=== PATIENT | male | born 1955 ===

== ENCOUNTER 2017-07-07 11:03 | Observation (INO) | payer MEDICARE ==
[2017-07-07] MEDS ORDERED: Iohexol 240 (50 ml) PO ONE (12:05)
--- NOTE | 2017-07-07 12:13 | ED PDOC ---
HPI: Abdomen Time Seen by Provider: 07/07/17 11:32 Chief Complaint (Nursing): Abdominal Pain Chief Complaint (Provider): Inguinal Pain History Per: Patient History/Exam Limitations: no limitations Onset/Duration Of Symptoms: Days (x 2) Current Symptoms Are (Timing): Still Present Location Of Pain/Discomfort: Diffuse Quality Of Discomfort: "Pain" Additional Complaint(s): 62 year old male with a history of HTN and cardiac stents presents to the ED complaining of left sided inguinal pain that radiates down his left leg. Patient also complains of minor hip pain and mild diffuse abdominal pain. He is unable to bear weight on his leg secondary to pain. Patient is compliant with hypertension medications. Denies injury, trauma, urinary symptoms, fever, and back pain. PMD: Dr. Benny Sorensen Past Medical History Reviewed: Historical Data, Nursing Documentation, Vital Signs Vital Signs: Last Vital Signs Temp 98.2 F 07/08/17 07:49 Pulse 64 07/08/17 07:49 Resp 20 07/08/17 07:49 BP 119/79 07/08/17 07:49 Pulse Ox 96 07/08/17 07:49 - Medical History PMH: Anxiety, Asthma, Depression, Emphysema, Gastritis, HTN, Osteoporosis, Rheumatoid Arthritis Denies: Chronic Kidney Disease - Surgical History Surgical History: Coronary Stent, Endoscopy (x 24 years ago) - Family History Family History: States: Unknown Family Hx - Immunization History Hx Tetanus Toxoid Vaccination: No Hx Influenza Vaccination: No Hx Pneumococcal Vaccination: No - Home Medications Home Medications: Ambulatory Orders Medication Instructions Recorded Alendronate [Fosamax] 70 mg PO MO 07/07/17 Ergocalciferol (Vitamin D2) 50,000 unit PO MO 07/07/17 [Vitamin D2] Ranitidine HCl [Zantac] 150 mg PO BID 07/07/17 Simvastatin [Zocor] 40 mg PO HS 07/07/17 Valsartan [Diovan] 80 mg PO DAILY 07/07/17 Ibuprofen [Motrin Tab] 600 mg PO Q8 PRN tab 07/08/17 - Allergies Allergies/Adverse Reactions: Allergies Allergy/AdvReac Type Severity Reaction Status Date / Time No Known Allergies Allergy Verified 07/07/17 11:33 Review of Systems ROS Statement: Except As Marked, All Systems Reviewed And Found Negative Gastrointestinal: Positive for: Abdominal Pain (diffuse; also c/o inguinal pain on left side) Musculoskeletal: Positive for: Leg Pain (radiating from inguinal area). Negative for: Back Pain Physical Exam - Reviewed Nursing Documentation Reviewed: Yes Vital Signs Reviewed: Yes - Physical Exam Appears: Positive for: Non-toxic, No Acute Distress Head Exam: Positive for: ATRAUMATIC, NORMAL INSPECTION, NORMOCEPHALIC Skin: Positive for: Normal Color, Warm, Dry Eye Exam: Positive for: EOMI, Normal appearance, PERRL Neck: Positive for: Normal, Painless ROM Cardiovascular/Chest: Positive for: Regular Rate, Rhythm Respiratory: Positive for: Normal Breath Sounds. Negative for: Respiratory Distress Gastrointestinal/Abdominal: Positive for: Tenderness (diffuse abdominal tenderness accompanied by left sided inguinal tenderness). Negative for: Mass, Other (abcess, fluctuance, erythema in inguinal area) Back: Positive for: Normal Inspection. Negative for: L CVA Tenderness, R CVA Tenderness Neurologic/Psych: Positive for: Alert, Oriented. Negative for: Motor/Sensory Deficits - Laboratory Results Result Diagrams: 07/07/17 12:30 07/07/17 12:30 - ECG O2 Sat by Pulse Oximetry: 98 (RA) Pulse Ox Interpretation: Normal Medical Decision Making Medical Decision Making: Time; 12:05 Initial Plan: --Abd pelvis CT --CMP --CBC --Morphine 2 mg IV --Omnipaque 50 ml PO --urine cx --urinalysis --labs and urine showed no clinically significant results. Time: 15:00 --Patient signed over to Dr. Glass, pending CT and reevaluation. Scribe Attestation: Documented by Erlinda Worthy, acting as a scribe for Va Mejía MD Provider Scribe Attestation: All medical record entries made by the Scribe were at my direction and personally dictated by me. I have reviewed the chart and agree that the record accurately reflects my personal performance of the history, physical exam, medical decision making, and the department course for this patient. I have also personally directed, reviewed, and agree with the discharge instructions and disposition. Disposition - Clinical Impression Clinical Impression: Groin pain - Patient ED Disposition Is Patient to be Admitted: Transfer of Care - Disposition Disposition: Transfer of Care Disposition Time: 15:00 Condition: FAIR Patient Signed Over To: Presley Glass Handoff Comments: pending CT and reevaluation.
[2017-07-07 12:27] LABS: SQUAMOUS EPITHIAL 1 /hpf (0-5); URINE BILIRUBIN NEGATIVE (NEGATIVE); URINE BLOOD NEGATIVE (NEGATIVE); URINE CLARITY SLIGHTY-CLOUDY (Clear); URINE COLOR YELLOW (YELLOW); URINE GLUCOSE (UA) NEG (Normal); URINE LEUKOCYTE ESTERASE NEG Leu/uL (Negative); URINE PROTEIN 30 mg/dL (NEGATIVE); URINE UROBILINOGEN 0.2-1.0 mg/dL (0.2-1.0)
[2017-07-07 12:43] LABS: BASO % 0.4 % (0.0-2.0); EOS % 0.4 % (0.0-4.0); HEMOGLOBIN 14.4 g/dL (12.0-18.0); LYMPH # 1.4 K/uL (1.0-4.3); LYMPH % 17.2 % (20.0-40.0); MEAN CELL VOLUME 86.3 fl (80.0-94.0); MEAN CORPUSCULAR HEMOGLOBIN 28.3 pg (27.0-31.0); MEAN CORPUSCULAR HGB CONC 32.8 g/dL (33.0-37.0); MONO # 0.8 K/uL (0.0-0.8); MONO % 9.9 % (0.0-10.0); NEUT # 5.8 K/uL (1.8-7.0); NEUT % 72.1 % (50.0-75.0); RBC 5.07 Mil/uL (4.40-5.90); RED CELL DISTRIBUTION WIDTH 13.6 % (11.5-14.5)
[2017-07-07 13:02] LABS: ALB/GLOB RATIO 1.3 (1.0-2.1); ALBUMIN 4.5 g/dL (3.5-5.0); ALT/SGPT 34 U/L (21-72); AST/SGOT 21 U/L (17-59); BLOOD UREA NITROGEN 14 mg/dl (9-20); CALCIUM 9.7 mg/dL (8.4-10.2); GFR AFRICAN-AMERICAN > 60; GFR NON-AFRICAN AMERICAN > 60
[2017-07-07] MEDS ORDERED: Iohexol 300 100 ML IJ ONE (14:18)
[2017-07-07] MEDS ORDERED: Morphine 4 MG/ML VIAL ONE (15:10)
--- NOTE | 2017-07-07 15:24 | ED PDOC ---
- Laboratory Results Result Diagrams: 07/07/17 12:30 07/07/17 12:30 Interpretation Of Abn Labs: no acute - ECG O2 Sat by Pulse Oximetry: 98 (RA) - CT Scan/US ct Other Rad Studies (CT/US): Read By Radiologist Other Rad Interpretation: pulm nodules - Progress ED Course And Treament: 1515: Took over care from Dr. Mejía. Fu on ct. Pt. here with abd and left groin pain. Stable. 1609: Still in pain in left groin. Hard to put weight on leg and walk. Physical exam with no testicular tenderness, no groin mass. Will need admit for further eval and tx. 1633: Stable. Spoke with Dr. Levy. will admit med surg obs and give further orders when pt. reaches floor. Medical Decision Making Medical Decision Making: Time: 15:00 --Patient endorsed to me by Dr. Mejía, pending CT and reevaluation. Time: 15:27 CT Abd/Pelvis: FINDINGS: LOWER THORAX: 3 mm noncalcified nodule is seen at the right lower lobe in image 1 series 5 with a subpleural 3.5 mm nodule identified at the right lower lobe laterally in image 6. An additional 3.5 mm noncalcified nodule seen in image 8 at the right lower lobe with the lung bases also remarkable for a small hiatal hernia. No left-sided pulmonary nodule. No infiltrate bilaterally. Trace pericardial thickening or fluid noted. LIVER: Unremarkable. No gross lesion or ductal dilatation. GALLBLADDER AND BILE DUCTS: Unremarkable. PANCREAS: Unremarkable. No gross lesion or ductal dilatation. SPLEEN: Unremarkable. ADRENALS: Unremarkable. No mass. KIDNEYS AND URETERS: Unremarkable. No hydronephrosis. No solid mass. VASCULATURE: Unremarkable. No aortic aneurysm. BOWEL: Unremarkable. No obstruction. No gross mural thickening. APPENDIX: Normal appendix. PERITONEUM: Unremarkable. No free fluid. No free air. LYMPH NODES: Unremarkable. No enlarged lymph nodes. BLADDER: Unremarkable. REPRODUCTIVE: Unremarkable. BONES: Dextroscoliotic lumbar spinal deformity. OTHER FINDINGS: There is a small developing left inguinal hernia containing only fat at this time. IMPRESSION: 1. There is a minimal left inguinal hernia containing only a limited amount of fat. No bowel is involved. No reactive changes seen associated at this time. 2. No bowel or urinary tract obstruction, mesenteric edema, ascites or free intraperitoneal gas grossly evident. No definite renal pathology appreciated bilaterally. 3. Three small pulmonary nodules identified at the right lower lobe for which follow-up elective chest CT without contrast is recommended for further evaluation of the non visualized lung [place]. Disposition Counseled Patient/Family Regarding: Studies Performed, Diagnosis - Clinical Impression Clinical Impression: Groin pain - POA Present On Arrival: None - Disposition Disposition: Hospitalized as Observation Patient Disposition Time: 16:02 Condition: FAIR
--- NOTE | 2017-07-07 15:29 | CT ---
PROCEDURE: CT Abdomen and Pelvis with contrast HISTORY: l groin pain COMPARISON: None. TECHNIQUE: Following oral and intravenous contrast administration, a CT examination of the abdomen and pelvis performed from the domes of the diaphragms to the symphysis pubis with reformatted datasets provided not only axial but also sagittal and coronal series. Contrast dose: Omnipaque 300, 100 cc Radiation dose: Total exam DLP = 258.12 mGy-cm. This CT exam was performed using one or more of the following dose reduction techniques: Automated exposure control, adjustment of the mA and/or kV according to patient size, and/or use of iterative reconstruction technique. FINDINGS: LOWER THORAX: 3 mm noncalcified nodule is seen at the right lower lobe in image 1 series 5 with a subpleural 3.5 mm nodule identified at the right lower lobe laterally in image 6. An additional 3.5 mm noncalcified nodule seen in image 8 at the right lower lobe with the lung bases also remarkable for a small hiatal hernia. No left-sided pulmonary nodule. No infiltrate bilaterally. Trace pericardial thickening or fluid noted. LIVER: Unremarkable. No gross lesion or ductal dilatation. GALLBLADDER AND BILE DUCTS: Unremarkable. PANCREAS: Unremarkable. No gross lesion or ductal dilatation. SPLEEN: Unremarkable. ADRENALS: Unremarkable. No mass. KIDNEYS AND URETERS: Unremarkable. No hydronephrosis. No solid mass. VASCULATURE: Unremarkable. No aortic aneurysm. BOWEL: Unremarkable. No obstruction. No gross mural thickening. APPENDIX: Normal appendix. PERITONEUM: Unremarkable. No free fluid. No free air. LYMPH NODES: Unremarkable. No enlarged lymph nodes. BLADDER: Unremarkable. REPRODUCTIVE: Unremarkable. BONES: Dextroscoliotic lumbar spinal deformity. OTHER FINDINGS: There is a small developing left inguinal hernia containing only fat at this time. IMPRESSION: 1. There is a minimal left inguinal hernia containing only a limited amount of fat. No bowel is involved. No reactive changes seen associated at this time. 2. No bowel or urinary tract obstruction, mesenteric edema, ascites or free intraperitoneal gas grossly evident. No definite renal pathology appreciated bilaterally. 3. Three small pulmonary nodules identified at the right lower lobe for which follow-up elective chest CT without contrast is recommended for further evaluation of the non visualized lung burleson.
[2017-07-07 17:11] VITALS: RESP 20
[2017-07-08 07:50] VITALS: BP 119/79; PULSE 64; TEMP 98.2
--- NOTE | 2017-07-08 14:27 | CP.PCM.HP ---
History of Present Illness - History of Present Illness History of Present Illness: CC: groin pain HPI: 62 y/o man with PMH of a cardiac stents and HTN presented to the ED complaining of left groin pain. Patient reports pain for 2 days, radiating down left leg, associated abdominal pain, denies injury or fall. Patient reported difficulty w/ weight bearing which has resolved. Patient denies headaches, chest pain, SOB, nausea, vomiting, diarrhea, dysuria, back pain, fever, or chills. PMD: Dr. Minh Sorensen PMH: cardiac stents and HTN meds: see med list allergies: NKDA PSH: umbilical hernia repair Fam: Father - [place] at 60, Sister - spinal CA SOC: quit smoking 20 years ago, before which he smoked 3ppd for 6 years, social EtOH use, denies illicit drug use, worked at a [employer], lives alone ROS: 12 points assessed and negative unless otherwise reported in HPI patient seen and examined this morning at bedside w/ Dr. Levy Present on Admission - Present on Admission Any Indicators Present on Admission: No History of DVT/PE: No History of Uncontrolled Diabetes: No Urinary Catheter: No Decubitus Ulcer Present: No Review of Systems - Review of Systems All systems: reviewed and no additional remarkable complaints except - Constitutional Constitutional: absent: Chills, Fever, Headache - EENT Eyes: absent: Change in Vision - Cardiovascular Cardiovascular: absent: Chest Pain - Respiratory Respiratory: absent: Cough, Dyspnea - Gastrointestinal Gastrointestinal: As Per HPI, Abdominal Pain. absent: Diarrhea, Hematochezia, Melena, Nausea, Vomiting - Genitourinary Genitourinary: absent: Dysuria - Musculoskeletal Musculoskeletal: absent: Back Pain - Integumentary Integumentary: absent: Rash - Neurological Neurological: absent: Dizziness, Headaches Past Patient History - Infectious Disease Hx of Infectious Diseases: None - Past Medical History & Family History Past Medical History?: Yes - Past Social History Smoking Status: Former Smoker - CARDIAC Hx Hypertension: Yes - PULMONARY Hx Asthma: Yes Hx Emphysema: Yes - NEUROLOGICAL Hx Neurological Disorder: Yes - HEENT Hx HEENT Problems: No - RENAL Hx Chronic Kidney Disease: No - ENDOCRINE/METABOLIC Hx Endocrine Disorders: No - HEMATOLOGICAL/ONCOLOGICAL Hx Blood Disorders: No - INTEGUMENTARY Hx Dermatological Problems: No - MUSCULOSKELETAL/RHEUMATOLOGICAL Hx Falls: No Hx Osteoporosis: Yes Hx Rheumatoid Arthritis: Yes - GASTROINTESTINAL Hx Gastritis: Yes - GENITOURINARY/GYNECOLOGICAL Hx Genitourinary Disorders: No - PSYCHIATRIC Hx Anxiety: Yes Hx Depression: Yes Hx Substance Use: No - SURGICAL HISTORY Hx Coronary Stent: Yes - ANESTHESIA Hx Anesthesia: Yes Hx Anesthesia Reactions: No Hx Malignant Hyperthermia: No Meds Home Medications: Home Medication List Medication Instructions Recorded Confirmed Type Ibuprofen [Motrin Tab] 600 mg PO Q8 PRN tab 07/08/17 Rx Allergies/Adverse Reactions: Allergies Allergy/AdvReac Type Severity Reaction Status Date / Time No Known Allergies Allergy Verified 07/07/17 11:33 Physical Exam - Constitutional Appears: Non-toxic, No Acute Distress - Head Exam Head Exam: ATRAUMATIC, NORMAL INSPECTION, NORMOCEPHALIC - Eye Exam Eye Exam: Normal appearance - ENT Exam ENT Exam: Mucous Membranes Moist - Neck Exam Neck exam: Positive for: Full Rom. Negative for: Tenderness - Respiratory Exam Respiratory Exam: Clear to Auscultation Bilateral. absent: Accessory Muscle Use , Decreased Breath Sounds, Rales, Rhonchi, Wheezes, Respiratory Distress - Cardiovascular Exam Cardiovascular Exam: REGULAR RHYTHM, RRR. absent: Bradycardia, Tachycardia, Diastolic murmur, Rubs, Systolic Murmur - GI/Abdominal Exam GI & Abdominal Exam: Normal Bowel Sounds, Soft. absent: Distended, Tenderness - Exam Exam: absent: Scrotal Swelling, Testicular Tenderness, Uretheral Discharge External exam: absent: Ecchymosis, Erythema, Lesions Additional comments: palpable, soft, mobile, mildly tender left inguinal lymph node, no other lymph nodes, no inguinal hernias bilaterally - Extremities Exam Extremities exam: Positive for: normal inspection. Negative for: calf tenderness, pedal edema - Back Exam Back exam: absent: CVA tenderness (L), CVA tenderness (R) - Neurological Exam Neurological exam: Alert, Normal Gait, Oriented x3 - Skin Skin Exam: Dry, Intact, Normal Color, Warm Results - Vital Signs Recent Vital Signs: Last Vital Signs Temp 98.2 F 07/08/17 07:49 Pulse 64 07/08/17 07:49 Resp 20 07/08/17 07:49 BP 119/79 07/08/17 07:49 Pulse Ox 96 07/08/17 07:49 - Labs Result Diagrams: 07/07/17 12:30 07/07/17 12:30 Assessment & Plan (1) Groin pain Status: Acute (2) Hypertension Status: Chronic - Assessment and Plan (Free Text) Plan: c/w present management afebrile, non-tachycardic, normotensive CT abdomen/pelvis: minimal left inguinal hernia containing only limited fat, no bowel dispo: DC home, follow up w/ PMD in 1 week, DC'ed w/ motrin 600 mg PO Q8h prn Addendum Addendum: 07/08/17 14:34 patient discharged home follow up w/ PMD in 1 week given script for motrin 600 mg PO Q8h
[2017-07-11 14:09] VITALS: O2SAT 98
[2017-07-11] MEDS ORDERED: Ergocalciferol 50,000 Intl Units Cap PO SCH (19:40)
[2017-07-11] MEDS ORDERED: ALENDRONATE 70 MG TAB PO SCH (19:40)
== END 2017-07-08 14:05 | disposition home or self-care (01) ==
LOC: H.ER 11:03 → H.ERHOLD 16:32 → H.MEDSURG1 18:17
PROVIDERS: ADMIT Family Medicine; ATTEND Family Medicine
DX: R10.32 Left lower quadrant pain (principal); I10 Essential (primary) hypertension; Z95.5 Presence of coronary angioplasty implant and graft; F41.9 Anxiety disorder, unspecified; F32.9 Major depressive disorder, single episode, unspecified; J43.9 Emphysema, unspecified; K29.70 Gastritis, unspecified, without bleeding; M81.0 Age-related osteoporosis without current pathological fracture; M06.9 Rheumatoid arthritis, unspecified; Z87.891 Personal history of nicotine dependence
CPT/HCPCS: 74177; 80053; 81003; 85025; 87086; 96374; 96375; 96376; 99283; G0378; J1885; J2270; Q9966; Q9967